=== PATIENT | female | born 1990 | race Caucasian/White ===

== ENCOUNTER 2019-07-03 17:34 | Emergency (ER) | payer BC ==
[2019-07-03] MEDS ORDERED: Lactated Ringers 1,000 ML ONE (17:55)
[2019-07-03] MEDS ORDERED: Lactated Ringers 1,000 ML IV ONE (18:56)
--- NOTE | 2019-07-03 19:13 | EDM.PDOC ---
ED HPI GENERAL MEDICAL PROBLEM - General Chief Complaint: General Stated Complaint: 12 WEEKS PG/CRAMPS Time Seen by Provider: 07/03/19 17:55 Source of Information: Reports: EMS ([id number]) History Limitations: Reports: No Limitations - History of Present Illness INITIAL COMMENTS - FREE TEXT/NARRATIVE: Patient presents to ER with complaints of pelvic cramping that started after dinner today. Is 12 week gestation. Has not had any concerns up to this point of the . She has not had any vaginal bleeding. Has not had her first OB visit. Patient is . Did eat dinner today, initially thought was related to that but has not eased since that time. Has yet to feel movement. Did not have intercourse last night or today. No lifting injuries. Onset: Today, Sudden Duration: Hour(s): Location: Reports: Abdomen Quality: Reports: Other (cramping) Severity: Moderate Improves with: Reports: None Associated Symptoms: Reports: Nausea/Vomiting. Denies: Confusion, Chest Pain, Cough, Fever/Chills, Headaches, Loss of Appetite, Shortness of Breath Abdominal Pain Score (Numeric/FACES): 6 - Related Data Allergies Allergy/AdvReac Type Severity Reaction Status Date / Time No Known Allergies Allergy Verified 07/03/19 18:46 Home Meds: Home Meds . 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 Denies: Vomiting : Reports: No Symptoms Musculoskeletal: Reports: No Symptoms Skin: Reports: No Symptoms Neurological: Reports: No Symptoms ED EXAM, GENERAL - Physical Exam Exam: See Below Exam Limited By: No Limitations General Appearance: Alert, WD/WN, No Apparent Distress Ears: Normal External Exam, Normal TMs Nose: Normal Inspection, Normal Mucosa, No Blood Throat/Mouth: Normal Inspection, Normal Oropharynx Head: Normocephalic Neck: Normal Inspection, Supple, Non-Tender Respiratory/Chest: No Respiratory Distress, Lungs Clear, Normal Breath Sounds Cardiovascular: Regular Rate, Rhythm GI/Abdominal: Normal Bowel Sounds, Soft, Tender (Female) Exam: Deferred, Other ( heart tones noted, 132.). No: Vaginal Bleeding Extremities: Normal Inspection, No Pedal Edema Neurological: Alert, Oriented Skin Exam: Warm, Dry Course - Vital Signs Last Recorded V/S: Last Vital Signs Temp 97.6 F 07/03/19 17:53 Pulse 93 07/03/19 17:53 Resp 18 07/03/19 17:53 BP 118/74 07/03/19 17:53 Pulse Ox 98 07/03/19 17:53 - Orders/Labs/Meds Orders: Active Orders 24 hr Category Date Time Status Lactated Ringers [Ringers, Lactated] 1,000 ml Med 07/03/19 18:56 Active IV .BOLUS Medication Orders Lactated Ringer's (Ringers, Lactated) 1,000 mls @ 999 mls/hr IV .BOLUS ONE Stop: 07/03/19 19:56 Last Admin: 07/03/19 18:00 Dose: 999 mls/hr Labs: Laboratory Tests 07/03/19 Range/Units 17:43 Urine Color Yellow (YELLOW) Urine Appearance Clear (CLEAR) Urine pH 7.0 (4.5-8.0) Ur Specific [place] 1.025 H (1.003-1.020) Urine Protein Negative (NEGATIVE) mg/dL Urine Glucose (UA) Negative (NEGATIVE) mg/dL Urine Ketones Trace H (NEGATIVE) mg/dL Urine Occult Blood Negative (NEGATIVE) Urine Nitrite Negative (NEGATIVE) Urine Bilirubin Negative (NEGATIVE) Urine Urobilinogen 0.2 (0.2-1.0) EU/dL Ur Leukocyte Esterase Negative (NEGATIVE) Meds: Medications Generic Name Dose Route Start Last Admin Trade Name Freq PRN Reason Stop Dose Admin Lactated Ringer's 1,000 mls @ 999 mls/hr 07/03/19 18:56 07/03/19 18:00 Ringers, Lactated IV 07/03/19 19:56 999 mls/hr .BOLUS ONE Administration Discontinued Medications Generic Name Dose Route Start Last Admin Trade Name Dat PRViviane Reason Stop Dose Admin Lactated Ringer's Confirm 07/03/19 17:55 07/03/19 18:58 Ringers, Lactated Administered 07/03/19 17:56 Not Given Dose 1,000 mls @ as directed .ROUTE .[facility] - Re-Assessments/Exams Free Text/Narrative Re-Assessment/Exam: 07/03/19 UA negative, does show specific gravity of 1.025. IV fluids given. discharge instruction given to patient. If continues to have cramping in am or develops any bleeding, should return and will need to obtain ultrasound when available. Departure - Departure Time of Disposition: 19:11 Disposition: Home, Self-Care 01 Condition: Good Clinical Impression: Pelvic cramping - Discharge Information *PRESCRIPTION DRUG MONITORING PROGRAM REVIEWED*: No *COPY OF PRESCRIPTION DRUG MONITORING REPORT IN PATIENT REMA: No Forms: ED Department Discharge Additional Instructions: 1. Push fluids 2. Rest 3. No sexual intercourse 4. Return if develop worsening pain, bleeding 5. Keep scheduled appointment for initial OB on Monday - My Orders Last 24 Hours: My Active Orders 07/03/19 18:56 Lactated Ringers [Ringers, Lactated] 1,000 ml IV .BOLUS - Assessment/Plan Last 24 Hours: My Active Orders 07/03/19 18:56 Lactated Ringers [Ringers, Lactated] 1,000 ml IV .BOLUS
[2019-07-04 00:16] LABS: CHLORIDE,CL 102 mEq/L (98-106); SODIUM,NA 137 mEq/L (136-145)
[2019-07-04] MEDS ORDERED: Acetaminophen/HYDROcodone 325-5 MG Tab PO ONE (01:01)
[2019-07-04] MEDS ORDERED: Ondansetron 4 MG Tab.DIS PO ONE (01:07)
[2019-07-04] MEDS ORDERED: Ondansetron 4 MG Tab.DIS ONE (01:14)
== END 2019-07-04 01:14 ==
LOC: CC.ED 17:34
DX: O99.89 Other specified diseases and conditions complicating pregnancy, childbirth and the puerperium (principal); R25.2 Cramp and spasm; R10.31 Right lower quadrant pain; O21.9 Vomiting of pregnancy, unspecified; Z3A.12 12 weeks gestation of pregnancy
CPT/HCPCS: 36415; 80053; 81003; 85025; 86140; 96360; 99283; A9270; J7120

== ENCOUNTER 2020-01-01 10:24 | Observation (INO) | payer BC ==
[2020-01-01] MEDS ORDERED: Acetaminophen 325 MG Tab PO ONE (11:07)
[2020-01-01] MEDS ORDERED: Sodium Chloride 0.9% 1,000 ML IV SCH (11:07)
[2020-01-01] MEDS: Sodium Chloride 0.9% 1,000 ML IV SCH ×2 (14:10→18:14)
[2020-01-01] MEDS ORDERED: Acetaminophen 325 MG Tab PO PRN (15:12)
[2020-01-01] MEDS: Codeine/Promethazine 10-6.25 MG/5 ML Syrup 5 ML UD Cup PO PRN (15:52)
[2020-01-01] MEDS: Oseltamivir 75 MG Cap PO SCH (17:19)
[2020-01-02] MEDS: Codeine/Promethazine 10-6.25 MG/5 ML Syrup 5 ML UD Cup PO PRN (00:37)
[2020-01-02] MEDS: Oseltamivir 75 MG Cap PO SCH (07:29)
[2020-01-02] MEDS: Sodium Chloride 0.9% 1,000 ML IV SCH (07:30)
--- NOTE | 2020-01-02 21:43 | PCM.DCSUM1 ---
Discharge Summary - Hospital Course Free Text/Narrative:: Patient admitted due to weakness, cough, dehydration related to influenza A. Did get IV fluids in SDC and continued to feel weak so admitted for observation , IV fluids and cough meds. Has been running high temps, up to 103. Cough harsh. Started on Tamiflu, prometh with codeine. Diagnosis: Stroke: No Modified [place] Scale: No Symptoms at All Modified Liz Scale Score: 0 - Discharge Data Discharge Date: 01/02/20 Discharge Disposition: Home, Self-Care 01 Condition: Fair - Referral to Home Health Primary Care Physician: Aguila Thornton MD - Patient Summary/Data Complications: none Hospital Course: Patient is feeling mildly better this am. Has continued to have significant sore throat, strep screen checked this am, is negative. Temp has improved this am, afebrile at present. Appetite is good. Good movement noted. Lung sounds clear. Does still have harsh cough. Currently taking Tamiflu, will continue for next 4 days. Prometh with codeine as needed for cough. Follow up with Dr. Thornton in one week. - Patient Instructions Diet: Usual Diet as Tolerated Activity: As Tolerated - Discharge Plan *PRESCRIPTION DRUG MONITORING PROGRAM REVIEWED*: No *COPY OF PRESCRIPTION DRUG MONITORING REPORT IN PATIENT REMA: No Prescriptions/Med Rec: Codeine/Promethazine [Phenergan with Codeine] 10 ml PO Q6H PRN #180 cup PRN Reason: Cough Home Medications: Home Meds Oseltamivir Phosphate 75 mg PO BID 01/01/20 [History] Codeine/Promethazine [Phenergan with Codeine] 10 ml PO Q6H PRN #180 cup [Rx] - Discharge Summary/Plan Comment DC Time >30 min.: No - General Info Date of Service: 01/02/20 Admission Dx/Problem (Free Text: Influenza A Functional Status: Reports: Pain Controlled, Tolerating Diet, Ambulating - Review of Systems General: Reports: Weakness, Fatigue, Malaise HEENT: Reports: Sore Throat Pulmonary: Reports: Cough. Denies: Shortness of Breath, Sputum, Wheezing Cardiovascular: Reports: No Symptoms Gastrointestinal: Denies: Abdominal Pain Genitourinary: Reports: No Symptoms Musculoskeletal: Reports: No Symptoms Skin: Reports: No Symptoms Neurological: Reports: Weakness - Patient Data Vitals - Most Recent: Last Vital Signs Temp 98.1 F 01/02/20 07:23 Pulse 110 H 01/02/20 07:23 Resp 18 01/02/20 07:23 BP 87/58 L 01/02/20 07:23 Pulse Ox 98 01/02/20 07:23 Weight - Most Recent: 170 lb 8 oz I&O - Last 24 hours: Intake & Output 01/02/20 01/02/20 01/02/20 06:59 14:59 22:59 Intake Total 995 Balance 995 STACY Results - Last 24 hrs: Microbiology 01/02/20 08:30 Group A Streptococcus Rapid Screen - Final Throat NEGATIVE STREP A SCREEN REFERENCE RANGE: NEGATIVE Med Orders - Current: Current Medications Discontinued Medications Acetaminophen (Tylenol) 650 mg PO NOW ONE Stop: 01/01/20 11:08 Last Admin: 01/01/20 11:19 Dose: 650 mg Acetaminophen (Tylenol) 650 mg PO Q6H PRN PRN Reason: Fever Last Admin: 01/01/20 19:56 Dose: 650 mg Sodium Chloride (Normal Saline) 1,000 mls @ 250 mls/hr IV ASDIRECTED [facility] Stop: 01/01/20 15:06 Last Admin: 01/01/20 11:18 Dose: 250 mls/hr Sodium Chloride (Normal Saline) 1,000 mls @ 75 mls/hr IV ASDIRECTED [facility] Last Admin: 01/02/20 07:30 Dose: 75 mls/hr Oseltamivir Phosphate (Tamiflu) 75 mg PO BIDMEALS [facility] Last Admin: 01/02/20 07:29 Dose: 75 mg Promethazine HCl/Codeine (Phenergan With Codeine) 10 ml PO Q6H PRN PRN Reason: Cough Last Admin: 01/02/20 00:37 Dose: 10 ml - Exam General: Reports: Alert, Oriented HEENT: Reports: Mucous Membr. Moist/[place]ck: Reports: Supple Lungs: Reports: Clear to Auscultation, Normal Respiratory Effort Cardiovascular: Reports: Regular Rate, Regular Rhythm GI/Abdominal Exam: Normal Bowel Sounds, Soft, Other (gravid) Extremities: Normal Inspection, No Pedal Edema Skin: Reports: Warm, Dry Neurological: Reports: No New Focal Deficit
== END 2020-01-02 09:50 | disposition home or self-care (01) ==
LOC: CC.FCMC 10:24 → CC.MS 10:24 → UNDOADMOB 14:07 → CC.MS 14:07 → UNDOADMOB 15:11 → CC.MS 15:11
PROVIDERS: ADMIT Physician Assistant Medical; ATTEND Family Medicine
DX: J10.1 Influenza due to other identified influenza virus with other respiratory manifestations (principal); E86.0 Dehydration
CPT/HCPCS: 87430; 87804; 96360; 96361; A9270; G0378; J7030